=== PATIENT | male | born 2000 | race Caucasian/White ===

== ENCOUNTER 2018-08-05 16:37 | Emergency (ER) | payer BC ==
--- NOTE | 2018-08-05 16:56 | ER Document Report ---
ED General - General Stated Complaint: POSSIBLE SEIZURE Time Seen by Provider: 08/05/18 16:53 - HPI Notes: Patient is a 17-year-old male that presents to the emergency department for chief complaint of seizure. Patient came in by EMS postictal and is not providing much information for HPI. EMS states patient was sitting in a vehicle at work when he had a witnessed tonic-clonic seizure. The seizure was self-limited and lasted for 1 minute. He did not have any injury during the seizure. He was incontinent of urine. Patient does have a reported epilepsy and is on medication. He states his seizure medicine is ibuprofen. When I asked how long it had been since he had a seizure he told me "1 hour". He currently denies any pain and is requesting a drink. Past Medical History: Seizure disorder Past Surgical History: Reviewed in chart Social History: Daily tobacco Family History: Reviewed and noncontributory for presenting illness Allergies: Reviewed, see documented allergy list. REVIEW OF SYSTEMS: CONSTITUTIONAL : No fever No chills No diaphoresis No recent illness EENT: No vision changes No congestion No sore throat CARDIOVASCULAR: No chest pain No palpitations RESPIRATORY: No shortness of breath No cough No difficulty breathing GASTROINTESTINAL: No abdominal pain No nausea No vomiting No diarrhea GENITOURINARY: No dysuria No hematuria No difficulty urinating MUSCULOSKELETAL: No back pain No leg pain No arm pain SKIN: No rashes No lesions LYMPHATIC: No swollen, enlarged glands. NEUROLOGICAL: Seizure No lightheadedness No headache No weakness No paresthesias PSYCHIATRIC: No anxiety No depression PHYSICAL EXAMINATION: Vital signs reviewed, nursing noted reviewed. GENERAL: somnolent, well-nourished and in no acute distress. HEAD: Atraumatic, normocephalic. EYES: Eyes appear normal, extraocular movements intact, sclera anicteric, conjunctiva are normal. ENT: nares patent, oropharynx clear without exudates. Moist mucous membranes. NECK: Normal range of motion, supple without lymphadenopathy LUNGS: Breath sounds clear to auscultation bilaterally and equal. No wheezes rales or rhonchi. HEART: Regular rate and rhythm without murmurs ABDOMEN: Soft, nontender, normoactive bowel sounds. No rebound, guarding, or rigidity. No masses appreciated. EXTREMITIES: Nontender, good range of motion, no pitting or edema. NEUROLOGICAL: Somnolent, disoriented to situation moves all extremities spontaneously Motor and sensory grossly intact on exam. PSYCH: Normal mood, normal affect. SKIN: Warm, Dry, normal turgor, no rashes or lesions noted on exposed skin - Related Data Allergies/Adverse Reactions: No Known Allergies Allergy (Verified 08/05/18 17:13) Past Medical History - Social History Smoking Status: Unknown if Ever Smoked Family History: Other - Sister has epilepsy Physical Exam - Vital signs Vitals: Resp Pulse Ox 25 H 89 L 08/05/18 16:57 08/05/18 16:57 Course - Re-evaluation Re-evalutation: 08/05/18 16:56 Vitals reviewed. Nursing notes reviewed. Patient appears postictal. He was placed on the quarter doper and seizure precautions. He is reportedly improving per EMS compared to when they initially found him. He does have a history of seizure disorder but his medications at this time are unknown. We will continue to monitor patient for resolution of postictal state. 08/05/18 19:14 Patient reevaluated. He has resolution of his postictal state. His parents are now at bedside. Patient has been compliant with his home Topamax but mother states that his seizures have been becoming more frequent. His last seizure was a few months ago. Mother states she is in the process of getting him established with a new neurologist at [place] to discuss other medical options. Patient is currently stable and will be discharged home with neurology follow-up - Vital Signs Vital signs: Temp Pulse Resp BP Pulse Ox 98.4 F 13 107/64 94 08/05/18 17:15 08/05/18 18:01 08/05/18 18:01 08/05/18 18:01 Discharge - Discharge Clinical Impression: Seizure Condition: Stable Disposition: HOME, SELF-CARE Instructions: Seizure, Known Epileptic ([facility]) Additional Instructions: Please return to the emergency department if you have any worsening, or concern of your symptoms. Please return to the emergency department if you develop chest pain, difficulty breathing, severe abdominal pain, or ongoing vomiting. Please follow-up with your primary care physician in 2-3 days and any other recommended physicians. If prescribed, take all medications as directed. If you have any questions or concerns do not hesitate to return the emergency department for evaluation. Referrals: TONIE CARTER MD [Primary Care Provider] - Follow up as needed
[2018-08-05] MEDS ORDERED: NORMAL SALINE 1000 ML 1,000 ML IV ONE (17:09)
[2018-08-05] MEDS ORDERED: ONDANSETRON HCL INJ/PF 4 MG/2 ML SDV IV ONE (17:48)
[2018-08-05 19:31] VITALS: BP 116/73
== END 2018-08-05 19:30 | disposition home or self-care (01) ==
LOC: EDBD → ER 16:37
DX: G40.909 Epilepsy, unspecified, not intractable, without status epilepticus (principal)
CPT/HCPCS: 99284; 96361; 96374; J2405; J7030

== ENCOUNTER 2019-11-12 11:37 | Emergency (ER) | payer BC ==
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
[2019-11-12 12:58] LABS: ABSOLUTE LYMPHOCYTES (AUTO) 1.3 10^3/uL (0.5-4.7); ABSOLUTE MONOCYTES (AUTO) 0.8 10^3/uL (0.1-1.4); ABSOLUTE NEUT (AUTO) 15.6 10^3/uL (1.7-8.2); BASOPHILS % (AUTO) 0.1 % (0-2); EOSINOPHILS % (AUTO) 0.1 % (0-6); HEMATOCRIT 42.5 % (37.9-51.0); HEMOGLOBIN 14.8 g/dL (13.5-17.0); LYMPHOCYTES % (AUTO) 7.4 % (13-45); MEAN CORPUSCULAR HEMOGLOBIN 30.9 pg (27.0-33.4); MEAN CORPUSCULAR HGB CONC 34.8 g/dL (32.0-36.0); MEAN CORPUSCULAR VOLUME 89 fl (80-97); MONOCYTES % (AUTO) 4.5 % (3-13); PLATELET COUNT 177 10^3/uL (150-450); RED BLOOD COUNT 4.78 10^6/uL (4.35-5.55); SEGMENTED NEUTROPHILS % (AUTO) 87.9 % (42-78); TOTAL CELLS COUNTED % (AUTO) 100 %; WHITE BLOOD COUNT 17.7 10^3/uL (4.0-10.5)
[2019-11-12 13:24] LABS: ALKALINE PHOSPHATASE 90 U/L (38-126); ANION GAP 7 (5-19); ASPARTATE AMINO TRANSFERASE 35 U/L (17-59); BILIRUBIN,TOTAL 0.6 mg/dL (0.2-1.3); BLOOD UREA NITROGEN 14 mg/dL (7-20); CALCIUM 9.9 mg/dL (8.4-10.2); CARBON DIOXIDE 19 mmol/L (22-30); CHLORIDE 111 mmol/L (98-107); GLUCOSE 138 mg/dL (75-110); POTASSIUM 3.7 mmol/L (3.6-5.0); TOTAL PROTEIN 7.7 g/dL (6.3-8.2)
[2019-11-12 13:28] LABS: ACETAMINOPHEN < 10 ug/mL (10-30); SALICYLATE < 1.0 mg/dL (2.0-20.0)
--- NOTE | 2019-11-12 13:31 | RADIOLOGY REPORT (SQ) ---
EXAM DESCRIPTION: CT HEAD WITHOUT IMAGES COMPLETED DATE/TIME: 11/12/2019 12:58 pm REASON FOR STUDY: altered mental/ head trauma COMPARISON: 03/31/2018 TECHNIQUE: Axial images acquired through the brain without intravenous contrast. Images reviewed wi th bone, brain and subdural windows. Additional sagittal and coronal reconstructions were generated. Images stored on PACS. All CT scanners at this facility use dose modulation, iterative reconstruction, and/or weight based d osing when appropriate to reduce radiation dose to as low as reasonably achievable (ALARA). [facility]: Dose Right [facility]: CareDose [facility]: Dose Right [facility]: Teradose 4D [facility]: MedioTrabajo RADIATION DOSE: CT Rad equipment meets quality standard of care and radiation dose reduction techniq ues were employed. CTDIvol: 53.2 mGy. DLP: 1017 mGy-cm. mGy. LIMITATIONS: None. FINDINGS: VENTRICLES: Normal size and contour. CEREBRUM: No masses. No hemorrhage. No midline shift. No evidence for acute infarction. Normal gra y/white matter differentiation. No areas of low density in the white matter. CEREBELLUM: No masses. No hemorrhage. No alteration of density. No evidence for acute infarction. EXTRAAXIAL SPACES: No fluid collections. No masses. ORBITS AND GLOBE: No intra- or extraconal masses. Normal contour of globe without masses. CALVARIUM: No fracture. PARANASAL SINUSES: No fluid or mucosal thickening. SOFT TISSUES: No mass or hematoma. OTHER: No other significant finding. IMPRESSION: NORMAL BRAIN CT WITHOUT CONTRAST. EVIDENCE OF ACUTE STROKE: NO. COMMENT: Quality ID # [id number]: Final reports with documentation of one or more dose reduction techniques (e.g., Automated exposure control, adjustment of the mA and/or kV according to patient size, use of iterative reconstruction technique) TECHNICAL DOCUMENTATION: JOB ID: [id number] 2010 [employer]- All Rights Reserved Reading location - IP/workstation name: [email or web address]
[2019-11-12 14:00] LABS: AMORPHOUS SEDIMENT,URINE 1+ /HPF; APPEARANCE,URINE CLOUDY; BILIRUBIN,URINE NEGATIVE (NEGATIVE); COLOR,URINE YELLOW; GLUCOSE, URINE NEGATIVE (NEGATIVE); KETONES,URINE NEGATIVE (NEGATIVE); LEUKOCYTE ESTERASE,URINE NEGATIVE (NEGATIVE); NITRITE,URINE NEGATIVE (NEGATIVE); PROTEIN,URINE 30 mg/dL (NEGATIVE); UROBILINOGEN,URINE NEGATIVE mg/dL (<2.0)
[2019-11-12 14:14] LABS: URINE AMPHETAMINES SCREEN NEGATIVE; URINE BARBITURATES SCREEN NEGATIVE; URINE BENZODIAZEPINES SCREEN NEGATIVE; URINE COCAINE SCREEN NEGATIVE; URINE METHADONE SCREEN NEGATIVE; URINE PHENCYCLIDINE SCREEN NEGATIVE
[2019-11-12 14:20] LABS: URINE MARIJUANA (THC) SCREEN UNCONFIRMED POSITIVE
[2019-11-12] MEDS ORDERED: LORAZEPAM INJ 2 MG/1 ML VIAL IV ONE (15:18)
--- NOTE | 2019-11-12 15:18 | ER Document Report ---
ED General - General Chief Complaint: Altered Mental Status Stated Complaint: AMS Time Seen by Provider: 11/12/19 12:16 Primary Care Provider: TONIE CARTER MD [ACTIVE STAFF] - Follow up as needed Mode of Arrival: Wheelchair Notes: 29-year-old male with epilepsy on Topamax presents with resolving altered mental status after having a seizure today. He has had on the ground this occurred se veral hours ago. He is come back to normal mental status since his been here in the ED waiting to be seen. He had labs drawn. His labs were normal. He says he has no headache right now no nausea no vomiting. He has had a new girlfriend with increased stress but no loss of sleep skip doses drugs or alcohol. TRAVEL OUTSIDE OF THE [place] IN LAST 30 DAYS: No - Related Data Allergies/Adverse Reactions: No Known Allergies Allergy (Verified 06/02/19 13:49) Home Medications: topromax. adderol Past Medical History - General Information source: Patient - Social History Smoking Status: Current Every Day Smoker Frequency of alcohol use: None Drug Abuse: None Family History: Reviewed & Not Pertinent, Other Neurological Medical History: Reports: Hx Seizures Renal/ Medical History: Denies: Hx Peritoneal Dialysis Psychiatric Medical History: Reports: Hx Depression - Immunizations Immunizations up to date: Yes Review of Systems - Review of Systems Notes: REVIEW OF SYSTEMS GEN: Denies fever, chills, weight loss ENT: Denies sore throat, nasal discharge, ear pain EYES: Denies blurry vision, eye pain, discharge CV: Denies chest pain, palpitations, edema RESP: Denies cough, shortness of breath, wheezing GI: Denies abdominal pain, nausea, vomiting, diarrhea MSK: Denies joint pain/swelling, edema, SKIN: Denies rash, skin lesions LYMPH: Denies swollen glands/lymph nodes NEURO: Altered mental status resolved seizure PSYCH: Denies depression, suicidal or homicidal ideation PHYSICAL EXAMINATION General: No acute distress, well-nourished Head: Right-sided forehead abrasion normocephalic ENT: Mouth normal, oropharynx moist, no exudates or tonsillar enlargement Eyes: Conjunctiva normal, pupils equal, lids normal Neck: No JVD, supple, no guarding CVS: Normal rate, regular rhythm, no murmurs Resp: No resp distress, equal and normal breath sounds bilaterally GI: Nondistended, soft, no tenderness to palpation, no rebound or guarding Ext: No deformities, no edema, normal range of motion in upper and lower ext Back: No CVA or midline TTP Skin: No rash, warm Lymphatic: No lymphadeopathy noted Neuro: Awake, alert. Face symmetric. GCS 15. Normal gait normal strength and sensation all 4 extremities, no myoclonus or ataxia. Physical Exam - Vital signs Vitals: Pulse Resp BP Pulse Ox 103 H 18 124/61 98 11/12/19 11:37 11/12/19 11:37 11/12/19 11:37 11/12/19 11:37 Course - Re-evaluation Re-evalutation: 11/12/19 17:16 Patient presents with seizure. Appears clinically dehydrated has been drinking water for an hour prior to me seeing him. White count is up but would expect that after seizure. He has no headache or other indication for head CT, is on Topamax which I cannot measure in his bloodstream. I did give him IV Ativan to prevent further seizures today instructed on hydration and will follow up with primary care and continue Topamax. I have discussed with the patient there likely diagnosis, aftercare plan, follow-up plans and my usual and customary return precautions. They verbalized understanding of this. - Vital Signs Vital signs: Temp Pulse Resp BP Pulse Ox 98.1 F 100 18 109/66 100 11/12/19 15:44 11/12/19 15:44 11/12/19 11:42 11/12/19 15:44 11/12/19 15:44 - Laboratory Result Diagrams: 11/12/19 12:30 11/12/19 12:30 Laboratory results interpreted by me: 11/12/19 11/12/19 11/12/19 12:30 12:30 13:12 WBC 17.7 H Lymph % (Auto) 7.4 L Absolute Neuts (auto) 15.6 H Seg Neutrophils % 87.9 H Sodium 136.9 L Chloride 111 H Carbon Dioxide 19 L Glucose 138 H Urine Protein 30 H Salicylates < 1.0 L Acetaminophen < 10 L Discharge - Discharge Clinical Impression: Breakthrough seizure Condition: Good Disposition: HOME, SELF-CARE Instructions: Seizure, Known Epileptic ([facility]) Referrals: TONIE CARTER MD [ACTIVE STAFF] - Follow up as needed
[2019-11-12 15:46] VITALS: BP 109/66
--- NOTE | 2019-11-12 23:01 | EKG REPORT ---
SEVERITY:- ABNORMAL ECG - SINUS RHYTHM FIRST DEGREE AV BLOCK : Confirmed by: Anegla Salgado MD 12-Nov-2019 23:00:54
== END 2019-11-12 15:46 | disposition home or self-care (01) ==
LOC: ER 11:37
DX: G40.909 Epilepsy, unspecified, not intractable, without status epilepticus (principal); Z79.899 Other long term (current) drug therapy; F17.200 Nicotine dependence, unspecified, uncomplicated
CPT/HCPCS: 93005; 99285; 96374; 36415; 87086; 80307 ×3; 85025; 80053; 81001; 70450; 93010; J2060